=== PATIENT | male | born 1980 | race American Indian/Alaskan Native ===

== ENCOUNTER 2021-01-30 10:49 | Emergency (ER) | payer OTHER ==
[2021-01-30 10:55] VITALS: BP 110/69
[2021-01-30] MEDS ORDERED: ALBUTEROL 2.5 MG/3 ML NEBU IH ONE (11:03)
[2021-01-30] MEDS ORDERED: IPRATROPIUM 0.02% NEBU 2.5 ML IH ONE (11:03)
[2021-01-30] MEDS ORDERED: dexAMETHasone 20 MG/5 ML VIAL IM ONE (11:03)
--- NOTE | 2021-01-30 11:07 | Emergency Department Report ---
ED Shortness of Breath HPI - General Chief Complaint: Dyspnea/Respdistress Stated Complaint: SOB Source: patient Mode of arrival: Ambulatory Limitations: No Limitations - History of Present Illness Initial Comments: 41-year-old male presents to the emergency room complaining of shortness of breath x2 days. Patient states he has been using his albuterol inhaler without much relief. Patient denies any hospitalization or intubation. Patient denies any fever chills or nausea no vomiting. Patient admits to shortness of breath and just chest discomfort with deep breathing. Patient denies any travel. MD Complaint: shortness of breath Onset/Timin -: days(s) Consistency: constant Improves With: nothing Worsens With: nothing Known History Of: asthma Associated Symptoms: pain with inspiration Treatments Prior to Arrival: bronchodilator - Related Data Home Oxygen Therapy: No Previous Rx's Medication Instructions Recorded Last Taken Type predniSONE [Deltasone] 20 mg PO QDAY 5 Days #5 tab 01/30/21 Unknown Rx Allergies Allergy/AdvReac Type Severity Reaction Status Date / Time No Known Allergies Allergy Unverified 01/30/21 10:53 ED Review of Systems ROS: Stated complaint: SOB Other details as noted in HPI ED Past Medical Hx - Past Medical History Previous Medical History?: Yes Hx Asthma: Yes - Surgical History Past Surgical History?: No - Medications Home Medications: Home Medications Medication Instructions Recorded Confirmed Last Taken Type predniSONE [Deltasone] 20 mg PO QDAY 5 Days #5 tab 01/30/21 Unknown Rx ED Physical Exam - General Limitations: No Limitations General appearance: alert, in no apparent distress - Head Head exam: Present: atraumatic, normocephalic - Eye Eye exam: Present: normal appearance - ENT ENT exam: Present: normal exam, normal external ear exam - Neck Neck exam: Present: normal inspection, full ROM - Respiratory Respiratory exam: Present: wheezes, prolonged expiratory - Cardiovascular Cardiovascular Exam: Present: tachycardia - Extremities Exam Extremities exam: Present: normal inspection, full ROM. Absent: pedal edema - Back Exam Back exam: Present: normal inspection, full ROM - Neurological Exam Neurological exam: Present: alert, oriented X3, normal gait - Psychiatric Psychiatric exam: Present: normal affect, normal mood - Skin Skin exam: Present: warm, dry, intact, normal color. Absent: rash ED Course Vital Signs 06/26/21 06/26/21 10:53 11:18 Temperature 98.1 F Pulse Rate 112 H Pulse Rate [ 94 H Anterior Bilateral Throughout] Respiratory 13 Rate Respiratory 116 H Rate [Anterior Bilateral Throughout] Blood Pressure 110/69 O2 Sat by Pulse 93 Oximetry - Reevaluation(s) Reevaluation #1: 01/30/21 12:30 Patient exam has improved no more wheezing. Moving air. Mildly tachycardic at 134 after having albuterol and Atrovent. - Consultations Consultation #1: 01/30/21 11:05 Respiratory therapist Damian LYNCH has been called ED Medical Decision Making - Medical Decision Making 41-year-old male presents to the emergency room complaining of shortness of breath x2 days. Patient states he has been using his albuterol inhaler without much relief. Patient denies any hospitalization or intubation. Patient denies any fever chills or nausea no vomiting. Patient admits to shortness of breath and just chest discomfort with deep breathing. Patient denies any travel. Respiratory has been called. Order has been placed for albuterol 10 mg inhalation, Atrovent 1 mg inhalation and dexamethasone 10 mg IM. Critical care attestation.: If time is entered above; I have spent that time in minutes in the direct care of this critically ill patient, excluding procedure time. ED Disposition Clinical Impression: Asthma attack Qualifiers: Asthma severity: mild Asthma persistence: intermittent Qualified Code(s): J45.21 - Mild intermittent asthma with (acute) exacerbation Disposition: - TO HOME OR SELFCARE Is pt being admited?: No Does the pt Need Aspirin: No Condition: Stable Instructions: Asthma, Adult Additional Instructions: Please complete your prednisone. Continue use of your inhaler. Follow-up with your primary care provider. Prescriptions: predniSONE [Deltasone] 20 mg PO QDAY 5 Days #5 tab Referrals: [facility] [Provider Group] - 3-5 Days LLOYD KIM MD [Staff Physician] - 3-5 Days Forms: Work/School Release Form(ED)
--- NOTE | 2021-01-30 12:55 | XRay Report ---
CHEST 2 VIEWS INDICATION / CLINICAL INFORMATION: sob,cough and rales. COMPARISON: None available. FINDINGS: SUPPORT DEVICES: None. HEART / MEDIASTINUM: No significant abnormality. LUNGS / PLEURA: No significant pulmonary or pleural abnormality. No pneumothorax. ADDITIONAL FINDINGS: No significant additional findings. IMPRESSION: 1. No acute findings. Signer Name: Damian Jackson MD Signed: 01/30/2021 12:50 PM Workstation Name: [id number]
== END 2021-01-30 12:40 | disposition home or self-care (01) ==
LOC: ED 10:49
DX: J45.909 Unspecified asthma, uncomplicated (principal); Z79.899 Other long term (current) drug therapy
CPT/HCPCS: 71046; 94640; 96372; 99283; J1100; 94644